=== PATIENT | female | born 1990 | race African-American/Black ===

== ENCOUNTER 2016-10-04 10:17 | Emergency (ER) | payer MEDICAID ==
[2016-10-04] MEDS ORDERED: ACETAMINOPHEN 325 MG TABLET PO ONE (10:27)
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
[2016-10-04 10:50] LABS: ABSOLUTE BASOPHILS # (AUTO) 0.1 10^3/uL (0.0-0.2); ABSOLUTE EOSINOPHILS # (AUTO) 0.1 10^3/uL (0.0-0.6); ABSOLUTE LYMPHOCYTES (AUTO) 1.9 10^3/uL (0.5-4.7); ABSOLUTE MONOCYTES (AUTO) 0.7 10^3/uL (0.1-1.4); ABSOLUTE NEUT (AUTO) 6.4 10^3/uL (1.7-8.2); BASOPHILS % (AUTO) 0.6 % (0-2); EOSINOPHILS % (AUTO) 1.3 % (0-6); HEMATOCRIT 33.5 % (36.0-47.0); HEMOGLOBIN 11.5 g/dL (12.0-15.5); LYMPHOCYTES % (AUTO) 20.6 % (13-45); MEAN CORPUSCULAR HEMOGLOBIN 30.2 pg (27.0-33.4); MEAN CORPUSCULAR HGB CONC 34.3 g/dL (32.0-36.0); MEAN CORPUSCULAR VOLUME 88 fl (80-97); MONOCYTES % (AUTO) 7.9 % (3-13); RED CELL DISTRIBUTION WIDTH 13.1 % (11.5-14.0); SEGMENTED NEUTROPHILS % (AUTO) 69.6 % (42-78); WHITE BLOOD COUNT 9.1 10^3/uL (4.0-10.5)
[2016-10-04 10:53] LABS: APPEARANCE,URINE SLIGHTLY-CLOUDY; BILIRUBIN,URINE NEGATIVE (NEGATIVE); GLUCOSE, URINE NEGATIVE (NEGATIVE); KETONES,URINE NEGATIVE (NEGATIVE); LEUKOCYTE ESTERASE,URINE TRACE (NEGATIVE); NITRITE,URINE NEGATIVE (NEGATIVE); PROTEIN,URINE NEGATIVE (NEGATIVE); URINE SPECIFIC GRAVITY 1.021; UROBILINOGEN,URINE NEGATIVE mg/dL (<2.0)
[2016-10-04 11:04] LABS: ALANINE AMINOTRANSFERASE 43 U/L (9-52); ALBUMIN 3.1 g/dL (3.5-5.0); ALKALINE PHOSPHATASE 96 U/L (38-126); ANION GAP 8 (5-19); ASPARTATE AMINO TRANSFERASE 30 U/L (14-36); BILIRUBIN,TOTAL 0.2 mg/dL (0.2-1.3); BLOOD UREA NITROGEN 7 mg/dL (7-20); CALCIUM 9.7 mg/dL (8.4-10.2); CARBON DIOXIDE 20 mmol/L (22-30); CHLORIDE 108 mmol/L (98-107); CREATININE RESULT 0.54 mg/dL (0.52-1.25); GLUCOSE 85 mg/dL (75-110); POTASSIUM 4.2 mmol/L (3.6-5.0); SODIUM 136.1 mmol/L (137-145); TOTAL PROTEIN 6.3 g/dL (6.3-8.2)
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
[2016-10-04 13:37] LABS: CHLAM PCR NOT DETECTED (NOT DETECT)
[2016-10-04 13:53] VITALS: BP 117/60
== END 2016-10-04 13:50 | disposition home or self-care (01) ==
LOC: ER 10:17
DX: O98.812 Other maternal infectious and parasitic diseases complicating pregnancy, second trimester (principal); N76.0 Acute vaginitis; B96.89 Other specified bacterial agents as the cause of diseases classified elsewhere; B37.3 Candidiasis of vulva and vagina; Z3A.18 18 weeks gestation of pregnancy; O99.332 Smoking (tobacco) complicating pregnancy, second trimester
CPT/HCPCS: 99284; 36415; 87210; 84702; 85025; 80053; 81001; 87491; 87591; 76805; 93976; L0120; J3490

== ENCOUNTER 2016-11-14 22:28 | Emergency (ER) | payer MEDICAID ==
[2016-11-14 22:41] VITALS: BP 101/62
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
== END 2016-11-15 00:38 | disposition home or self-care (01) ==
LOC: ER 22:28
DX: O9A.219 Injury, poisoning and certain other consequences of external causes complicating pregnancy, unspecified trimester (principal); S00.83XA Contusion of other part of head, initial encounter; Y04.2XXA Assault by strike against or bumped into by another person, initial encounter; Z3A.00 Weeks of gestation of pregnancy not specified
CPT/HCPCS: 99284

== ENCOUNTER 2016-12-06 11:17 | Emergency (ER) | payer MEDICAID ==
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
[2016-12-06 12:23] VITALS: BP 111/58
== END 2016-12-06 12:23 | disposition home or self-care (01) ==
LOC: ER 11:17
DX: H60.502 Unspecified acute noninfective otitis externa, left ear (principal); H92.12 Otorrhea, left ear
CPT/HCPCS: 99282

== ENCOUNTER 2017-02-21 10:50 | Inpatient (IN) | payer MEDICAID ==
[2017-02-21] MEDS ORDERED: RINGERS SOLUTION,LACTATED 1,000 ML IV PRN (11:19)
[2017-02-21] MEDS ORDERED: EPHEDRINE SULFATE INJ 50 MG/1 ML AMPULE ONE (11:21)
[2017-02-21] MEDS ORDERED: FENTANYL/BUPIVACAINE/NS/PF 200 MCG/100 ML RTUINJ EPI ONE (11:21)
[2017-02-21] MEDS ORDERED: BUPIVACAINE HCL 0.25 % INJ/PF (2.5 MG/1 ML) 30 ML VIAL INFIL ONE (11:22)
[2017-02-21] MEDS ORDERED: BUPIVACAINE HCL 0.25 % INJ/PF (2.5 MG/1 ML) 30 ML VIAL ONE (11:22)
[2017-02-21] MEDS ORDERED: FENTANYL/BUPIVACAINE/NS/PF 100 ML EPI PRN (11:22)
[2017-02-21] MEDS ORDERED: BENZOIN/ALOE VERA/STORAX/TOLU TINCTURE 60 ML TP PRN (11:22)
[2017-02-21] MEDS ORDERED: PENICILLIN G-K 5 MILLION UNIT VIAL ONE (11:22)
[2017-02-21 11:25] LABS: APPEARANCE,URINE CLEAR; BILIRUBIN,URINE NEGATIVE (NEGATIVE); GLUCOSE, URINE NEGATIVE (NEGATIVE); KETONES,URINE NEGATIVE (NEGATIVE); LEUKOCYTE ESTERASE,URINE TRACE (NEGATIVE); NITRITE,URINE NEGATIVE (NEGATIVE); PROTEIN,URINE NEGATIVE (NEGATIVE); URINE SPECIFIC GRAVITY 1.006; UROBILINOGEN,URINE NEGATIVE mg/dL (<2.0)
[2017-02-21 11:41] LABS: URINE BARBITURATES SCREEN NEGATIVE; URINE METHADONE SCREEN NEGATIVE; URINE OPIATES LOW NEGATIVE; URINE PHENCYCLIDINE SCREEN NEGATIVE
[2017-02-21 12:16] LABS: ABSOLUTE LYMPHOCYTES (AUTO) 1.4 10^3/uL (0.5-4.7); ABSOLUTE MONOCYTES (AUTO) 0.6 10^3/uL (0.1-1.4); ABSOLUTE NEUT (AUTO) 5.8 10^3/uL (1.7-8.2); BASOPHILS % (AUTO) 0.3 % (0-2); EOSINOPHILS % (AUTO) 0.4 % (0-6); HEMATOCRIT 35.6 % (36.0-47.0); HEMOGLOBIN 11.4 g/dL (12.0-15.5); HGB HCT DIFFERENCE -1.4; LYMPHOCYTES % (AUTO) 17.6 % (13-45); MEAN CORPUSCULAR HEMOGLOBIN 28.2 pg (27.0-33.4); MEAN CORPUSCULAR HGB CONC 32.1 g/dL (32.0-36.0); MEAN CORPUSCULAR VOLUME 88 fl (80-97); RED BLOOD COUNT 4.05 10^6/uL (3.72-5.28); RED CELL DISTRIBUTION WIDTH 13.3 % (11.5-14.0); SEGMENTED NEUTROPHILS % (AUTO) 73.7 % (42-78); WHITE BLOOD COUNT 7.9 10^3/uL (4.0-10.5)
[2017-02-21] MEDS ORDERED: OXYTOCIN/NORMAL SALINE 20 UNIT/1,000 ML RTUINJ ONE (12:31)
[2017-02-21] MEDS ORDERED: LIDOCAINE 1% INJ-PF (10 MG/ML) 30 ML SDV ONE (12:31)
[2017-02-21] MEDS ORDERED: MISOPROSTOL 0.2 MG TABLET ONE (12:31)
[2017-02-21] MEDS ORDERED: PSEUDOEPHEDRINE HCL 30 MG TABLET PO PRN (13:43)
[2017-02-21] MEDS ORDERED: MEASLES,MUMPS&RUBELLA VACC/PF 0.5 ML VIAL SUBCUT PRN (13:43)
[2017-02-21] MEDS ORDERED: DIPH/PERTUSS(ACELL)/TETANUS VAC/PF 0.5 ML SYR (>=10YO) IM PRN (13:43)
[2017-02-21] MEDS ORDERED: OXYTOCIN/NORMAL SALINE 1,000 ML IV PRN (13:43)
[2017-02-21] MEDS ORDERED: GLYCERIN/WITCH HAZEL LEAF 1 EACH MED..PAD TP PRN (13:43)
[2017-02-21] MEDS ORDERED: NA PHOS,M-B/NA PHOS,DI-BA (ADULT) 133 ML ENEMA PR PRN (13:43)
[2017-02-21] MEDS ORDERED: PROMETHAZINE HCL 25 MG SUPP.RECT PR PRN (13:43)
[2017-02-21] MEDS ORDERED: DIBUCAINE 1% OINTMENT 28 GM TP PRN (13:43)
[2017-02-21] MEDS ORDERED: DIPHENHYDRAMINE HCL 25 MG CAPSULE PO PRN (13:43)
[2017-02-21] MEDS ORDERED: PROMETHAZINE HCL 25 MG TABLET PO PRN (13:43)
[2017-02-21] MEDS ORDERED: PROMETHAZINE HCL INJ 25 MG/1 ML VIAL IV PRN (13:43)
[2017-02-21] MEDS ORDERED: BENZOCAINE/MENTHOL AEROSOL SPRAY 56 ML TOP PRN (13:43)
[2017-02-21] MEDS ORDERED: ZOLPIDEM TARTRATE 5 MG TABLET PO PRN (13:43)
[2017-02-21] MEDS ORDERED: MAGNESIUM HYDROXIDE SUSP 30 ML UDCUP PO PRN (13:43)
[2017-02-21] MEDS ORDERED: ACETAMINOPHEN 650 MG SUPP.RECT PR PRN (13:43)
[2017-02-21] MEDS ORDERED: ACETAMINOPHEN WITH CODEINE #3 TABLET PO PRN (13:43)
--- NOTE | 2017-02-21 14:20 | Delivery Summary ---
Del Sum A-C Datetime Report Generated by CPN: 02/21/2017 14:19 DELIVERY PERSONNEL DELIVERY PERSONNEL: [phone] Delivery Doctor:: Pita Flores MD Labor and Delivery Nurse:: Siena Centeno RNinstrument tester Nurse:: Misty Burton RN Nursery Nurse:: Ashlee Sharma RN Nursery Nurse:: Sweta Zepeda RN MATERNAL INFORMATION Delivery Anesthesia: Epidural Medications After Delivery: Pitocin Drip 20 Units/1000ml NSS Estimated Blood Loss (ml): 250 Maternal Complications: None Provider Comments: VMI delivered in YANY presentation, no nuchal cord. Shoulders and body delivered w/o difficulty. Cord doubly clamped and cut and infant to maternal abdomen. Placenta delivered intact spontaneously. Uterine exploration performed and removed small amount of membranes and no e/o retained placenta or membranes after additional exploration. FF at U. Good hemostasis post repair of laceration. Apgars 8/9. Weight pending. Mother and baby stable upon provider leaving the room. LABOR SUMMARY EDC: 03/04/2017 00:00 No. Babies in Womb: 1 Attempted: No Labor Anesthesia: Epidural LABOR INFORMATION Reason for Induction: Not Applicable Onset of Labor: 02/21/2017 04:30 Complete Dilatation: 02/21/2017 13:06 Oxytocin: N/A Group B Beta Strep: positiive Antibiotics # of Doses: 1 Antibiotics Time of Last Dose: 1136 Name of Antibiotic Given: PCN Steroids Given: None Reason Steroids Not Administered: Not Applicable MEMBRANES Membranes Rupture Method: Spontaneous Rupture of Membranes: 02/21/2017 12:19 Length of Rupture (hr): 0.93 Amniotic Fluid Color: Clear Amniotic Fluid Amount: Moderate Amniotic Fluid Odor: Normal STAGES OF LABOR Stage 1 hr: 8 Stage 1 min: 36 Stage 2 hr: 0 Stage 2 min: 9 Stage 3 hr: 0 Stage 3 min: 2 Total Time in Labor hr: 8 Total Time in Labor min: 47 VAGINAL DELIVERY Episiotomy: None Laceration Extension: First Degree Laceration Type: Vaginal Laceration Repair: Yes Laceration Repair Note: Bilateral labial and 1st degree midline laceration repaired in usual fashion with good hemostasis. Sponge Count Correct: Yes Sharps Count Correct: Yes CSECTION DELIVERY Primary Indication: N/A Secondary Indication: N/A CSection Incidence: N/A Labor: N/A Elective: N/A CSection Incision: N/A BABY A INFORMATION Infant Delivery Date/Time: 02/21/2017 13:15 Method of Delivery: Vaginal Born in Route : No : N/A Forceps: N/A Vacuum Extraction: N/A Shoulder Dystocia : No PRESENTATION/POSITION BABY A Presentation: Cephalic Cephalic Presentation: Vertex Vertex Position: Right Occipital Anterior Breech Presentation: N/A PLACENTA INFORMATION BABY A Placenta Delivery Time : 02/21/2017 13:17 Placenta Method of Delivery: Spontaneous Placenta Status: Delivered SCORES BABY A Heart Rate 1 min: >100 bpm Resp Effort 1 min: Good Cry Reflex Irritability 1 min: Cough or Sneeze or Pulls Away Muscle Tone 1 min: Some Flexion of Extremities Color 1 min: Body [place], Extremities Blue Resuscitation Effort 1 min: Tactile Stimulation SCORE 1 MIN: 8 Heart Rate 5 min: >100 bpm Resp Effort 5 min: Good Cry Reflex Irritability 5 min: Cough or Sneeze or Pulls Away Muscle Tone 5 min: Active Motion Color 5 min: Body [place], Extremities Blue Resuscitation Effort 5 min: Tactile Stimulation SCORE 5 MIN: 9 INFANT INFORMATION BABY A Gestational Age at Delivery: 38.3 Gestational Status: Early Term- 37- 38.6 Weeks Outcome : Liveborn Infant Condition : Stable Sex: Male IDENTIFICATION BABY A Verification Date/Time: 02/21/2017 13:31 ID Band Number: [id number] Mother's Name Verified: Yes RN Verifying : B Baidy RN Additional Verifying Personnel: E [employer] RN WEIGHT/LENGTH BABY A Infant Birthweight (gm): 3100 Infant Weight (lb): 6 Infant Weight (oz): 13 Length (in): 19.75 Length (cm): 50.17 CORD INFORMATION BABY A No. Cord Vessels: 3 Nuchal Cord : N/A Infant Suction: Mouth ASSESSMENT BABY A Infant Complications: None Physical Findings at Delivery: Within Normal Limits Respirations: Appears Normal Skin to Skin: Yes Estate Tax Examiner/ALS Called : No Infant Care By: A. Sharma RN Transferred To: Remains with Mother BABY B INFORMATION : N/A SIGNATURES Signature: with User ID: [email or web address]
[2017-02-21] MEDS: IBUPROFEN 800 MG TABLET PO SCH ×2 (15:13→22:07)
[2017-02-21] MEDS ORDERED: PENICILLIN G POTASSIUM 2,500,000 UNIT in DEXTROSE 5%-WATER 50 ML IV SCH (15:20)
--- NOTE | 2017-02-21 15:32 | Admission Physical ---
Datetime Report Generated by CPN: 02/21/2017 15:32 CURRENT ADMISSION Chief Complaint: Uterine Contractions Indication for Induction: Not Applicable Admit Plan: Admit to Unit; Initiate Labor Protocol ALLERGIES Medication Allergies: Yes Medication Allergies: ondansetron HCl/UT (03/22/2016) Latex: No Latex Allergies Food Allergies: N/A Environmental Allergies: N/A OBSTETRICAL HISTORY EDC: 03/04/2017 00:00 : 1 Para: 0 Term: 0 : 0 SAB: 0 IAB: 0 Ectopic: 0 Livin Cesareans: 0 VBACs: 0 Multiple Births: 0 Gestational Diabetes: No Rh Sensitization: No Incompetent Cervix: No GABBY: No Infertility: No ART Treatment: No Uterine Anomaly: No IUGR: No Hx Previous C/S: No Macrosomia: No Hx Loss/Stillborn: No PIH: No Hx : No Placenta Previa/Abruption: No Depression/PP Depression: Yes PTL/PROM: No Post Hemorrhage: No Current Procedures: Ultrasound Obstetrical History Comments: G1- current SEE RECORDS Alcohol: No Marijuana : No Cocaine: No Other Illicit Drugs: No Cigarettes: Current Everyday Smoker. [id number] MEDICAL HISTORY Diabetes: No Blood Transfusion: No Pulmonary Disease (Asthma, TB): No Breast Disease: No Hypertension: No Inspector Water Pollution Control Surgery: No Heart Disease: No Hosp/Surgery: No Autoimmune Disorder: No Anesthetic Complications: No Kidney Disease: No Abnormal Pap Smear: No Neuro/Epilepsy: No Psychiatric Disorders: No Other Medical Diseases: No Hepatitis/Liver Disease: No Significant Family History: No Varicosities/Phlebitis: No Trauma/Violence : No Thyroid Dysfunction: No INFECTIOUS HISTORY Gonorrhea: No Genital Herpes: No Chlamydia: Yes Tuberculosis: No Syphilis: No Hepatitis: No HIV/AIDS Exposure: No Rash or Viral Illness: No HPV: No Infectious History Comments: PID 2009 Chlamydia 2015 PHYSICAL EXAM General: Normal HEENT: Normal Neurologic: Normal Thyroid: Normal Heart: Normal Lungs: Normal Breast: Deferred Back: Normal Abdomen: Normal Genitourinary Exam: Normal Extremities: Normal DTRs: Normal Pelvic Type: Adequate Physical Exam Comments: Pelvis unproven Vital Signs: Reviewed; Within Normal Limits VAGINAL EXAM Dilatation: 4 Effacement: 90 Station: 0 Contraction Comments: q2 MEMBRANES Membranes: Intact FETUS A EGA: 38.3 Monitoring: External US FHR- Baseline: 120 Variability: Moderate 6-25bpm Accelerations: 15X15 Decelerations: None Presentation: Vertex Admit Comment: 26yo at 38+3ega presents via ambulance for ctx since 429. She was 2cm in the office and upon arrival is 4/0. GBS positive. Vertex presentation. c/b chlamydia - treated with TOMMY good in [place]. Repeat GC/CT 02/03/2017 was negative. History of depression. Obesity. Admit for labor. PCN for GBS pos. Pt desires epidural. Epidural upon pt request. Anticpate EFW 7# PLANS FOR LABOR AND DELIVERY Labor and Delivery: None Pain Management: Epidural Feeding Preference: Breast Benefit of Breast Feed Discussed: Yes Circumcision: Yes INFORMED CONSENT Signature: with User ID: [email or web address]
[2017-02-21] MEDS: DOCUSATE SODIUM 100 MG CAPSULE PO SCH (18:01)
[2017-02-21] MEDS: FERROUS SULFATE 325 MG TABLET PO SCH (18:01)
[2017-02-21] MEDS: ACETAMINOPHEN WITH CODEINE #3 TABLET PO PRN (20:33)
[2017-02-21] MEDS: FAMOTIDINE 20 MG TABLET PO SCH (22:07)
[2017-02-22] MEDS: IBUPROFEN 800 MG TABLET PO SCH ×3 (05:36→21:10)
[2017-02-22 08:22] LABS: HEMATOCRIT 32.3 % (36.0-47.0); HEMOGLOBIN 10.7 g/dL (12.0-15.5); HGB HCT DIFFERENCE -0.2; MEAN CORPUSCULAR HEMOGLOBIN 28.7 pg (27.0-33.4); MEAN CORPUSCULAR HGB CONC 33.1 g/dL (32.0-36.0); MEAN CORPUSCULAR VOLUME 87 fl (80-97); RED BLOOD COUNT 3.73 10^6/uL (3.72-5.28); RED CELL DISTRIBUTION WIDTH 13.4 % (11.5-14.0); WHITE BLOOD COUNT 9.8 10^3/uL (4.0-10.5)
[2017-02-22] MEDS: SENNOSIDES/DOCUSATE 8.6-50 MG 1 EACH TABLET PO SCH (09:03)
[2017-02-22] MEDS: FAMOTIDINE 20 MG TABLET PO SCH ×2 (09:03→21:10)
[2017-02-22] MEDS: FERROUS SULFATE 325 MG TABLET PO SCH ×2 (09:03→17:20)
[2017-02-22] MEDS: DOCUSATE SODIUM 100 MG CAPSULE PO SCH ×2 (09:04→17:20)
[2017-02-22] MEDS: PRENATAL VITAMIN W-O CA NO5/FE FUMARATE/FA CAPSULE PO SCH (09:04)
--- NOTE | 2017-02-22 10:11 | PDOC PROGRESS REPORT ---
Subjective-OB Subjective: Post Delivery Day: 26 year old. Denies any needs at this time Physical Exam (OB) Vital Signs: Temp Pulse Resp BP Pulse Ox 97.9 F 83 16 116/62 97 02/22/17 08:04 02/22/17 08:04 02/22/17 08:04 02/22/17 08:04 02/22/17 08:04 Intake & Output 02/21/17 02/22/17 02/23/17 06:59 06:59 06:59 Weight 91.9 kg - PIH/Pre-Eclampsia DTR's: 2 + Clonus: Negative Headache: Absent Epigastric Pain: No Visual Changes: No - Lochia Lochia Amount: Scant < 10 ml Lochia Color: Rubra/Red - Abdomen Description: Tender, Soft Hernia Present: No Bowel Sounds: Normoactive Flatus Presence: Present Stool: No Fundal Description: Firm, Midline Fundal Height: u/u - u/2 Objective-Diagnostic Laboratory: 02/22/17 08:02 02/21/17 02/21/17 02/21/17 11:01 11:45 11:45 WBC 7.9 RBC 4.05 Hgb 11.4 L Hct 35.6 L MCV 88 MCH 28.2 MCHC 32.1 RDW 13.3 Plt Count 174 Seg Neutrophils % 73.7 Lymphocytes % 17.6 Monocytes % 8.0 Eosinophils % 0.4 Basophils % 0.3 Absolute Neutrophils 5.8 Absolute Lymphocytes 1.4 Absolute Monocytes 0.6 Absolute Eosinophils 0.0 Absolute Basophils 0.0 Urine Color STRAW Urine Appearance CLEAR Urine pH 7.0 Ur Specific Lawler 1.006 Urine Protein NEGATIVE Urine Glucose (UA) NEGATIVE Urine Ketones NEGATIVE Urine Blood NEGATIVE Urine Nitrite NEGATIVE Ur Leukocyte Esterase TRACE H Blood Type B POSITIVE Antibody Screen NEGATIVE 02/22/17 08:02 WBC 9.8 RBC 3.73 Hgb 10.7 L Hct 32.3 L MCV 87 MCH 28.7 MCHC 33.1 RDW 13.4 Plt Count 168 Seg Neutrophils % Lymphocytes % Monocytes % Eosinophils % Basophils % Absolute Neutrophils Absolute Lymphocytes Absolute Monocytes Absolute Eosinophils Absolute Basophils Urine Color Urine Appearance Urine pH Ur Specific Lawler Urine Protein Urine Glucose (UA) Urine Ketones Urine Blood Urine Nitrite Ur Leukocyte Esterase Blood Type Antibody Screen
[2017-02-23] MEDS: ACETAMINOPHEN WITH CODEINE #3 TABLET PO PRN (02:07)
[2017-02-23] MEDS: IBUPROFEN 800 MG TABLET PO SCH (06:03)
[2017-02-23 08:22] VITALS: BP 121/68
[2017-02-23] MEDS: PRENATAL VITAMIN W-O CA NO5/FE FUMARATE/FA CAPSULE PO SCH (09:47)
[2017-02-23] MEDS: DOCUSATE SODIUM 100 MG CAPSULE PO SCH (09:48)
[2017-02-23] MEDS: FERROUS SULFATE 325 MG TABLET PO SCH (09:48)
[2017-02-23] MEDS: FAMOTIDINE 20 MG TABLET PO SCH (09:48)
[2017-02-23] MEDS: SENNOSIDES/DOCUSATE 8.6-50 MG 1 EACH TABLET PO SCH (09:48)
--- NOTE | 2017-02-23 13:47 | PDOC DISCHARGE SUMMARY ---
Final Diagnosis Discharge Date: 02/23/17 - Final Diagnosis (1) Chlamydia and BV in Is this a current diagnosis for this admission?: Yes (2) Positive GBS test Is this a current diagnosis for this admission?: Yes (3) Obesity affecting Is this a current diagnosis for this admission?: Yes (4) Smoker Is this a current diagnosis for this admission?: Yes (5) Delivery normal Is this a current diagnosis for this admission?: Yes (6) Is this a current diagnosis for this admission?: Yes Discharge Data - Discharge Medication Home Medications: Docusate Sodium [Colace 100 mg Capsule] 100 mg PO BID #60 capsule 02/23/17 Ferrous Sulfate [Feosol 325 mg Tablet] 325 mg PO BID #60 tablet 02/23/17 Ibuprofen [Motrin 800 mg Tablet] 800 mg PO Q8HP PRN #60 tablet 02/23/17 Pnv W-O Ca No5/Fe Fumarate/FA [-U Multiple Vitamin Capsule] 1 cap PO DAILY #0 capsule 02/23/17 Reason(s) for Admission: Onset of Labor Intrapartum Procedure(s): Spontaneous Vaginal Delivery Complication(s): Laceration-Perineal Laceration-Degree: 1st - Diagnosis Test Laboratory: Temp Pulse Resp BP Pulse Ox 98.0 F 89 17 121/68 100 02/23/17 08:20 02/23/17 08:20 02/23/17 08:20 02/23/17 08:20 02/23/17 08:20 02/21/17 02/21/17 02/22/17 11:01 11:45 08:02 RBC 4.05 3.73 Hgb 11.4 L 10.7 L Hct 35.6 L 32.3 L Urine Opiates Screen NEGATIVE - Discharge information/Instructions Discharge Activity: Activity As Tolerated, Balance Activity w/Rest, No Lifting Over 10 Pounds, No Lifting/Push/Pulling, No tub bath Discharge Diet: Regular Disposition: HOME, SELF-CARE Follow up with: [facility] in: 4, Weeks
== END 2017-02-23 14:05 | disposition home or self-care (01) | DRG 775 ==
LOC: LC 10:50 → LR 11:19 → 2S 15:29
PROVIDERS: ADMIT Student in an Organized Health Care Education/Training Program; ATTEND Student in an Organized Health Care Education/Training Program
PROC: 10E0XZZ Delivery of Products of Conception, External Approach (ICD-10-PCS; principal; 2017-02-21)
PROC: 0HQ9XZZ Repair Perineum Skin, External Approach (ICD-10-PCS; 2017-02-21)
PROC: 4A1HXCZ Monitoring of Products of Conception, Cardiac Rate, External Approach (ICD-10-PCS; 2017-02-21)
DX: O99.824 Streptococcus B carrier state complicating childbirth (principal); O70.0 First degree perineal laceration during delivery; O99.214 Obesity complicating childbirth; E66.9 Obesity, unspecified; Z68.32 Body mass index [BMI] 32.0-32.9, adult; O99.334 Smoking (tobacco) complicating childbirth; F17.210 Nicotine dependence, cigarettes, uncomplicated; O99.344 Other mental disorders complicating childbirth; F32.9 Major depressive disorder, single episode, unspecified; Z79.899 Other long term (current) drug therapy; Z88.8 Allergy status to other drugs, medicaments and biological substances; Z3A.38 38 weeks gestation of pregnancy; Z37.0 Single live birth
CPT/HCPCS: 36415; 80307; 81005; 85025; 85027; 86592; 86850; 86900; 86901; 94760; J2540; J2590; J3490

== ENCOUNTER 2017-03-15 12:16 | Emergency (ER) | payer MEDICAID ==
[2017-03-15 12:22] VITALS: BP 118/73
[2017-03-15] MEDS ORDERED: DOCUSATE SODIUM 100 MG CAPSULE RT_EAR ONE (13:24)
--- NOTE | 2017-03-15 13:37 | ER Document Report ---
HPI - HPI Pain Level: 3 Context: 26 yo female c/o left wrist pain x 1 month and decreased hearing in right ear x 1 wk. no ear pain or drainage. pt reports that a piece of equipment fell on wrist 1 month ago. has been having pain in wrist since then. + pain with movement Associated Symptoms: None Exacerbated by: Movement Relieved by: Denies Similar symptoms previously: No Recently seen / treated by doctor: No - CONSTITUTIONAL Constitutional: DENIES: Fever, Chills - EENT EENT: REPORTS: Ear Pain - ear clogged - REPRODUCTIVE Reproductive: REPORTS: : - MUSCULOSKELETAL Musculoskeletal: REPORTS: Extremity pain - left wrist - DERM Skin Color: Normal - NURSING COMMENTS Comment: pt stated she dropped a piece of equipment on her left wrist a month ago and has been hurting since. pt stated she was so no xrays were taken. pt also has right ear hard to hear out of feels clogged Past Medical History - General Information source: Patient Last Menstrual Period: 03/14/2017 - Social History Smoking Status: Current Every Day Smoker Cigarette use (# per day): No Chew tobacco use (# tins/day): No Frequency of alcohol use: None Drug Abuse: None Lives with: Family Family History: Arthritis, CAD, CVA, DM, Hyperlipidemia, Hypertension, Malignancy. denies: Thyroid Disfunction - Past Medical History Cardiac Medical History: Reports: Hx Hypercholesterolemia Neurological Medical History: Reports: Hx Migraine Renal/ Medical History: Denies: Hx Peritoneal Dialysis GI Medical History: Reports: Hx Gastroesophageal Reflux Disease Musculoskeltal Medical History: Reports Hx Musculoskeletal Trauma - left ankle fracture Skin Medical History: Reports Hx Eczema Psychiatric Medical History: Reports: Hx Bipolar Disorder Traumatic Medical History: Reports: Hx Fractures - left ankle Surgical Hx: Negative - Immunizations Hx Diphtheria, Pertussis, Tetanus Vaccination: Yes - 2013 Vertical Provider Document - CONSTITUTIONAL Agree With Documented VS: Yes Exam Limitations: No Limitations - INFECTION CONTROL TRAVEL OUTSIDE OF THE [place] IN LAST 30 DAYS: No - HEENT HEENT: Atraumatic. negative: Tympanic Membrane Bulging - + cerumen impaction right EAC - NECK Neck: Normal Inspection, Supple - RESPIRATORY Respiratory: Breath Sounds Normal, No Respiratory Distress O2 Sat by Pulse Oximetry: 97 - CARDIOVASCULAR Cardiovascular: Regular Rate, Regular Rhythm - MUSCULOSKELETAL/EXTREMETIES Musculoskeletal/Extremeties: Tender - left distal radial tenderness. + snuff box tenderness. no pain with axial thumb loading - NEURO Level of Consciousness: Awake, Alert, Appropriate Motor/Sensory: No Sensory Deficit - DERM Integumentary: Warm, Dry, No Rash Course - Re-evaluation Re-evalutation: 03/15/17 14:36 xray negative for fracture. H&P c/w tendonitits. results reviewed with patient. with provide cock up wrist splint for comfort and have patient follow up with primary care. pt stable for discharge - Vital Signs Vital signs: Temp Pulse Resp BP Pulse Ox 97.9 F 99 16 118/73 97 03/15/17 12:20 03/15/17 12:20 03/15/17 12:20 03/15/17 12:20 03/15/17 12:20 Procedures - Immobilization left wrist Immobilizer type: Cock-up Performed by: PCT Post-Proc Neuro Vasc Exam: Normal Alignment checked and good: Yes Discharge - Discharge Clinical Impression: Left wrist pain Cerumen impaction Qualifiers: Laterality: right Qualified Code(s): H61.21 - Impacted cerumen, right ear Condition: Stable Disposition: HOME, SELF-CARE Instructions: Temporary Splint ([facility]), Ice & Elevation ([facility]), Ibuprofen (General ) ([facility]) Additional Instructions: Your xray is negative for fracture wear splint for comfort take motrin for pain and inflammation follow up with primary care if pain persists, may need orthopedic referral You may use OTC ear irrigation as needed for wax build up in ears Prescriptions: Ibuprofen [Motrin 800 Mg Tablet] 800 mg PO Q6H #20 tablet
--- NOTE | 2017-03-15 14:13 | RADIOLOGY REPORT (SQ) ---
EXAM DESCRIPTION: WRIST LEFT 3 VIEWS COMPLETED DATE/TIME: 03/15/2017 2:06 pm REASON FOR STUDY: peice of equipment fell on wrist COMPARISON: None. NUMBER OF VIEWS: Three views. TECHNIQUE: AP, lateral, and oblique radiographic images acquired of the left wrist. LIMITATIONS: None. FINDINGS: MINERALIZATION: Normal. BONES: No acute fracture or dislocation. No worrisome bone lesions. Normal alignment. SOFT TISSUES: No soft tissue swelling. No foreign body. OTHER: No other significant finding. IMPRESSION: NEGATIVE STUDY OF THE LEFT WRIST. NO RADIOGRAPHIC EVIDENCE OF ACUTE INJURY. TECHNICAL DOCUMENTATION: JOB ID: [id number] [employer]- All Rights Reserved
== END 2017-03-15 15:45 | disposition home or self-care (01) ==
LOC: ER 12:16
DX: M25.532 Pain in left wrist (principal); W20.8XXA Other cause of strike by thrown, projected or falling object, initial encounter; H61.21 Impacted cerumen, right ear; F17.200 Nicotine dependence, unspecified, uncomplicated
CPT/HCPCS: 99283; 73110; L3908; J3490

== ENCOUNTER 2017-04-19 10:02 | Emergency (ER) | payer MEDICAID ==
--- NOTE | 2017-04-19 10:41 | ER Document Report ---
ED ENT - General Chief Complaint: Cough Stated Complaint: COUGH Time Seen by Provider: 04/19/17 10:06 Mode of Arrival: Ambulatory Information source: Patient Notes: 26-year-old female presents to ED for complaint of cough for 4 days. She states she initially had a sore throat which is progressed in severity to now at the level 4. She also states she has had clogging and pain in both ears. She denies any medication or treatment prior to arrival. She claims she has had discharge and drainage from her ears. TRAVEL OUTSIDE OF THE [place] IN LAST 30 DAYS: No - HPI Patient complains to provider of: Ear problem, Nose problem, Throat problem Onset: Other - 4 days Onset/Duration: Gradual, Worse Quality of pain: Achy, Sharp Severity: Moderate Pain Level: 4 Context: Recent Illness Location of pain: Ears, Nose, Sinus, Throat Associated symptoms: Chills, Cough, Ear pain, Ear drainage, Fever, Sinus pain, Sinus drainage, Sore throat Similar symptoms previously: Yes Recently seen / treated by doctor: No - Related Data Allergies/Adverse Reactions: ondansetron HCl [From Zofran] Allergy (Mild, Verified 04/19/17 11:04) Past Medical History - General Information source: Patient - Social History Smoking Status: Current Every Day Smoker Cigarette use (# per day): Yes - 3-4 cig Chew tobacco use (# tins/day): No Smoking Education Provided: Yes - less than 2 min Frequency of alcohol use: None Drug Abuse: None Lives with: Family Family History: Arthritis, CAD, CVA, DM, Hyperlipidemia, Hypertension, Malignancy, Thyroid Disfunction Patient has suicidal ideation: No Patient has homicidal ideation: No - Past Medical History Cardiac Medical History: Reports: Hx Hypercholesterolemia Pulmonary Medical History: Reports: None EENT Medical History: Reports: None Neurological Medical History: Reports: Hx Migraine Endocrine Medical History: Reports: None Renal/ Medical History: Reports: None Malignancy Medical History: Reports: None GI Medical History: Reports: Hx Gastroesophageal Reflux Disease Musculoskeltal Medical History: Reports Hx Musculoskeletal Trauma - left ankle fracture Skin Medical History: Reports Hx Eczema Psychiatric Medical History: Reports: Hx Bipolar Disorder Traumatic Medical History: Reports: Hx Fractures - left ankle Infectious Medical History: Reports: None Past Surgical History: Reports: Hx Oral Surgery - wisdom teeth - Immunizations Immunizations up to date: Yes Hx Diphtheria, Pertussis, Tetanus Vaccination: Yes - 2012 Review of Systems - Review of Systems Constitutional: No symptoms reported EENT: Ear pain, Ear discharge, Nose discharge, Sinus discharge, Throat pain Cardiovascular: No symptoms reported Respiratory: Cough Gastrointestinal: No symptoms reported Genitourinary: No symptoms reported Female Genitourinary: No symptoms reported Musculoskeletal: No symptoms reported Skin: No symptoms reported Hematologic/Lymphatic: No symptoms reported Neurological/Psychological: No symptoms reported -: Yes All other systems reviewed and negative Physical Exam - Vital signs Vitals: Temp Pulse Resp BP Pulse Ox 98.5 F 94 16 103/64 98 04/19/17 10:06 04/19/17 10:06 04/19/17 10:06 04/19/17 10:06 04/19/17 10:06 Interpretation: Normal - General General appearance: Appears well, Alert - HEENT Head: Normocephalic, Atraumatic Eyes: Normal Pupils: PERRL Ears: Normal External canal: Erythema, Swollen Tympanic membrane: Injected, Loss of landmarks Sinus: Normal Nasal: Purulent discharge, Swelling Mouth/Lips: Normal Mucous membranes: Normal Pharynx: Erythema Neck: Normal - Respiratory Respiratory status: No respiratory distress Chest status: Nontender Breath sounds: Nonproductive cough Chest palpation: Normal - Cardiovascular Rhythm: Regular Heart sounds: Normal auscultation Murmur: No - Abdominal Inspection: Normal Distension: No distension Bowel sounds: Normal Tenderness: Nontender Organomegaly: No organomegaly - Back Back: Normal, Nontender - Extremities General upper extremity: Normal inspection, Nontender, Normal color, Normal ROM , Normal temperature General lower extremity: Normal inspection, Nontender, Normal color, Normal ROM , Normal temperature, Normal weight bearing. No: Tarik's sign - Neurological Neuro grossly intact: Yes Cognition: Normal Orientation: AAOx4 [place] Coma Scale Eye Opening: Spontaneous Jovan Coma Scale Verbal: Oriented Jovan Coma Scale Motor: Obeys Commands Jovan Coma Scale Total: 15 Speech: Normal Motor strength normal: LUE, RUE, LLE, RLE Sensory: Normal - Psychological Associated symptoms: Normal affect, Normal mood - Skin Skin Temperature: Warm Skin Moisture: Dry Skin Color: Normal Course - Re-evaluation Re-evalutation: 04/19/17 19:06 Assessment consistent with upper respiratory infection with ear infections. Patient was treated with Cipro eardrops and amoxicillin. Patient to follow-up with her primary doctor on Thursday or Thursday to ensure that the ears are clearing up. - Vital Signs Vital signs: Temp Pulse Resp BP Pulse Ox 98.9 F 93 18 106/64 98 04/19/17 11:12 04/19/17 11:12 04/19/17 11:12 04/19/17 11:12 04/19/17 11:12 Discharge - Discharge Clinical Impression: Otitis media Qualifiers: Otitis media type: suppurative Chronicity: acute Laterality: left Recurrence: not specified as recurrent Spontaneous tympanic membrane rupture: without spontaneous rupture Qualified Code(s): H66.002 - Acute suppurative otitis media without spontaneous rupture of ear drum, left ear Otitis externa Qualifiers: Otitis externa type: unspecified type Chronicity: acute Laterality: bilateral Qualified Code(s): H60.503 - Unspecified acute noninfective otitis externa, bilateral URI (upper respiratory infection) Qualifiers: URI type: unspecified URI Qualified Code(s): J06.9 - Acute upper respiratory infection, unspecified Condition: Stable Disposition: HOME, SELF-CARE Instructions: Family Physicians / Practices Additional Instructions: UPPER RESPIRATORY ILLNESS: You have a viral infection of the respiratory passages -- a "cold." This common infection causes nasal congestion, drainage, and often sore throat and cough. It is highly contagious. The disease usually lasts about 10 to 14 days. There is no "cure" for the viral infection -- it must run its course. If there is a complication, such as bacterial infection in the nose, sinuses, middle ear, or bronchial tubes, antibiotics may be required. The antibiotics won't affect the virus. Drink plenty of fluids. A humidifier may help. An expectorant medication or decongestant may make you more comfortable. Use acetaminophen or ibuprofen for fever or aches. See the doctor if fever persists over two days, if there is any significant worsening of your symptoms, or if you simply fail to improve as expected. OTITIS MEDIA: You have a middle ear infection (otitis media). This is usually a complication of a cold or sore throat. The middle ear cavity becomes filled with infection. Pressure and stretching of the ear drum cause pain. Antibiotics are required. A 10 day course is usually prescribed. A decongestant may be recommended if you have a "runny nose." You may need anesthetic drops or other pain medication. A follow-up exam may be recommended to make sure the infection has completely cleared. If the ear begins to drain, it means the ear drum has ruptured. This will usually heal spontaneously. However, it means you should keep the ear dry until re-examined by a doctor. Call the physician or return for examination at once if there is severe headache, stiff neck, confusion, increasing fever, or dizziness. You should improve significantly within two days. If you're not better, call the doctor. OTITIS EXTERNA: You have otitis externa -- an infection of the outer ear canal. This can be very painful. It's sometimes called "swimmer's ear," because it often occurs after prolonged water exposure. Many things, such as earwax and dirt in the ear, can contribute to it. The usual treatment is antibiotic/antiinflammatory ear drops. Occasionally , a wick will be placed in the ear to draw in the medicine. If the infection is severe, an oral antibiotic may be prescribed. Pain medication is often needed. Avoid getting water in the ear. Outer ear infections often take longer to heal than you might expect. Some tenderness and ache in the ear may persist for about two weeks. See your physician if you fail to improve as expected. Call the doctor at once if you develop fever, increasing swelling (particularly if it makes your ear "poke out"), severe headache, stiff neck, or decreased hearing. USE OF EAR DROPS: Your ear drops won't do much good if they don't get all the way in. To help the ear drops penetrate all the way to the ear drum, use the following technique. If you encounter problems of any kind, notify the physician. (1) Lay your head sideways on a pillow. (2) Place the dropper tip just barely inside the ear canal, almost touching the bottom side of the canal. The liquid is tolerated better on the bottom of the canal. (3) Squeeze out the appropriate amount of medicine, and remove the dropper. (4) Grab the back of the ear (just behind the ear canal) between your index finger and thumb. (5) Tug up, then let the ear drop back. Repeat several times. This pumps the medicine down. (6) Wait five minutes, then place a cotton ball in the ear canal to catch and hold the medicine. CIPROFLOXACIN: You have been given an antibacterial agent, ciprofloxacin (Cipro). This medicine is not related to the penicillins, sulfas, cephalosporins, or tetracyclines. It is often given to patients who are allergic to these drugs. It has been chosen for you either because other drugs are not appropriate, or because of the nature of your problem. Cipro should not be taken with antacids, as these can decrease its effectiveness. It can be taken without regard to meals. CIPRO SHOULD NOT BE TAKEN BY CHILDREN, NURSING WOMEN, OR WOMEN. Although Cipro is usually well-tolerated, common side effects can include nausea and diarrhea. Contact your doctor if you experience any unusual symptoms while on this medication, such as joint pain or swelling, shortness of breath, wheezing, faintness, or hives. AMOXICILLIN: Amoxicillin is a member of the penicillin family. It covers the germs likely to cause ear, bronchial, and urinary infections better than plain penicillin. Amoxicillin can be taken without regard to meals. Nausea after taking the medication is rare, but can occur. Diarrhea can occur, particularly in small children. Vaginal yeast infections and oral thrush in infants are also common. Contact your physician if these problems occur. Allergy to penicillins is common. If you have had an allergic reaction to any drug of the penicillin family, you should never take any other penicillin. Notify your doctor at once if you develop hives, itching, swelling, faintness, or shortness of breath. Less serious side effects can include nausea or diarrhea. DECONGESTANT MEDICATION: A decongestant medicine has been suggested. Often this medicine is combined in the same tablet with an antihistamine or expectorant. This type of medicine is helpful in treating a bad cold or sinus condition, as well as in treatment of the nasal congestion of hay fever. It is not of much benefit for lung infections. Decongestant medicines are related to stimulants. They can cause an increase in blood pressure and heart rate. Persons with heart disease and high blood pressure should not take decongestants without discussing this with the physician. If you develop palpitations, chest pain, headache, or tremors, stop the medicine and consult your physician. COUGH-SUPPRESSANT & EXPECTORANT MEDICATION: You are to use a cough medication as needed for relief of symptoms. This medicine is a combination of an expectorant (to make the mucous thinner and more easily "coughed up") and a cough suppressant (to reduce the frequency of coughing). The cough-suppressant medicine is related to narcotics. You may experience mild nausea and sleepiness. Some patients who are very sensitive to narcotics may have stomach pain from this medicine. Taking the medicine with food reduces these side effects. Do not drive or work with machinery until you know how this medicine affects you. The expectorant should have no side effects. Iodine-containing expectorants (such as organidin) should not be taken by persons with active thyroid disease unless approved by your doctor. Call the doctor if you develop shortness of breath, hives, rash, itching, lightheadedness, or severe nausea and vomiting. USE OF ACETAMINOPHEN (Tylenol): Acetaminophen may be taken for pain relief or fever control. It's much safer than aspirin, offering a wider range of "safe" dosages. It is safe during . Some brand names are Tylenol, Panadol, Datril, Anacin 3, Tempra, and Liquiprin. Acetaminophen can be repeated every four hours. The following are maximum recommended dosages: >89 pounds or adults 650 mg to 900 mg Acetaminophen can be repeated every four hours. Maximum dose not to exceed 4000 mg a day. FOLLOW-UP CARE: If you have been referred to a physician for follow-up care, call the physician s office for an appointment as you were instructed or within the next two days. If you experience worsening or a significant change in your symptoms, notify the physician immediately or return to the Emergency Department at any time for re-evaluation. Prescriptions: Amoxicillin 875 mg PO BID #20 tablet Forms: Return to Work
[2017-04-19 11:15] VITALS: BP 106/64
--- NOTE | 2017-04-19 11:31 | RADIOLOGY REPORT (SQ) ---
EXAM DESCRIPTION: CHEST PA/LAT COMPLETED DATE/TIME: 04/19/2017 10:54 am REASON FOR STUDY: cough COMPARISON: None. TECHNIQUE: Frontal and lateral radiographic views of the chest acquired. NUMBER OF VIEWS: Two view. LIMITATIONS: None. FINDINGS: LUNGS AND PLEURA: No opacities, masses or pneumothorax. No pleural effusion. MEDIASTINUM AND HILAR STRUCTURES: No masses or contour abnormalities. HEART AND VASCULAR STRUCTURES: Heart normal size. No evidence for failure. BONES: No acute findings. HARDWARE: None in the chest. OTHER: No other significant finding. IMPRESSION: NO SIGNIFICANT RADIOGRAPHIC FINDING IN THE CHEST. TECHNICAL DOCUMENTATION: JOB ID: [id number] [email or web address]- All Rights Reserved
[2017-04-19] MEDS ORDERED: GUAIFENESIN 600 MG TABLET.SA PO ONE (11:53)
[2017-04-19] MEDS ORDERED: IBUPROFEN 800 MG TABLET PO ONE (11:53)
[2017-04-19] MEDS ORDERED: PSEUDOEPHEDRINE HCL 30 MG TABLET PO ONE (11:53)
[2017-04-19] MEDS ORDERED: CIPROFLOXACIN-HC OTIC SUSP 10 ML AU ONE (11:54)
[2017-04-19] MEDS ORDERED: AMOXICILLIN TRIHYDRATE 500 MG CAPSULE PO ONE (11:54)
== END 2017-04-19 12:54 | disposition home or self-care (01) ==
LOC: ER 10:02
DX: J02.9 Acute pharyngitis, unspecified (principal); H66.002 Acute suppurative otitis media without spontaneous rupture of ear drum, left ear; H60.503 Unspecified acute noninfective otitis externa, bilateral; R05 Cough; H92.03 Otalgia, bilateral; J34.89 Other specified disorders of nose and nasal sinuses; R50.9 Fever, unspecified; F17.210 Nicotine dependence, cigarettes, uncomplicated; Z71.6 Tobacco abuse counseling; Z88.8 Allergy status to other drugs, medicaments and biological substances
CPT/HCPCS: 99283; 71020; J3490 ×3

== ENCOUNTER 2017-07-19 17:37 | Emergency (ER) | payer SELFPAY ==
[2017-07-19] MEDS ORDERED: ACETAMINOPHEN 325 MG TABLET PO ONE (18:09)
[2017-07-19] MEDS ORDERED: NORMAL SALINE 1000 ML 1,000 ML IV ONE (18:10)
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
[2017-07-19 19:58] LABS: ABSOLUTE BASOPHILS # (AUTO) 0.1 10^3/uL (0.0-0.2); ABSOLUTE LYMPHOCYTES (AUTO) 2.1 10^3/uL (0.5-4.7); ABSOLUTE MONOCYTES (AUTO) 0.4 10^3/uL (0.1-1.4); ABSOLUTE NEUT (AUTO) 4.1 10^3/uL (1.7-8.2); EOSINOPHILS % (AUTO) 0.4 % (0-6); HEMATOCRIT 43.9 % (36.0-47.0); HEMOGLOBIN 14.7 g/dL (12.0-15.5); HGB HCT DIFFERENCE 0.2; MEAN CORPUSCULAR HEMOGLOBIN 28.9 pg (27.0-33.4); MEAN CORPUSCULAR HGB CONC 33.5 g/dL (32.0-36.0); MEAN CORPUSCULAR VOLUME 86 fl (80-97); MONOCYTES % (AUTO) 6.6 % (3-13); RED BLOOD COUNT 5.09 10^6/uL (3.72-5.28); RED CELL DISTRIBUTION WIDTH 13.1 % (11.5-14.0); WHITE BLOOD COUNT 6.7 10^3/uL (4.0-10.5)
[2017-07-19 20:30] LABS: APPEARANCE,URINE CLEAR; BILIRUBIN,URINE NEGATIVE (NEGATIVE); GLUCOSE, URINE NEGATIVE (NEGATIVE); KETONES,URINE NEGATIVE (NEGATIVE); LEUKOCYTE ESTERASE,URINE NEGATIVE (NEGATIVE); NITRITE,URINE NEGATIVE (NEGATIVE); PROTEIN,URINE NEGATIVE (NEGATIVE); URINE SPECIFIC GRAVITY 1.018; UROBILINOGEN,URINE NEGATIVE mg/dL (<2.0)
[2017-07-19 20:32] LABS: ANION GAP 15 (5-19); BLOOD UREA NITROGEN 11 mg/dL (7-20); CALCIUM 10.1 mg/dL (8.4-10.2); CARBON DIOXIDE 23 mmol/L (22-30); CHLORIDE 107 mmol/L (98-107); GLUCOSE 91 mg/dL (75-110); POTASSIUM 4.2 mmol/L (3.6-5.0)
[2017-07-19 20:38] LABS: URINE BARBITURATES SCREEN NEGATIVE; URINE METHADONE SCREEN NEGATIVE; URINE OPIATES LOW NEGATIVE; URINE PHENCYCLIDINE SCREEN NEGATIVE
[2017-07-19 20:39] LABS: RBC,URINE 0-1 /HPF
[2017-07-19 20:40] LABS: BACTERIA,URINE TRACE /HPF
[2017-07-19] MEDS ORDERED: ERYTHROMYCIN 0.5% OPH OINTMENT 3.5 GM (ER DISP) OU PRN (20:47)
[2017-07-19 21:20] VITALS: BP 119/86
== END 2017-07-19 21:15 | disposition home or self-care (01) ==
LOC: ER 17:37
DX: S09.90XA Unspecified injury of head, initial encounter (principal); S00.81XA Abrasion of other part of head, initial encounter; F17.200 Nicotine dependence, unspecified, uncomplicated; E78.00 Pure hypercholesterolemia, unspecified; Y04.2XXA Assault by strike against or bumped into by another person, initial encounter; Z77.098 Contact with and (suspected) exposure to other hazardous, chiefly nonmedicinal, chemicals
CPT/HCPCS: 99284; 96360; 36415; 85025; 80048; 81001; 80307; 70486; J7030

== ENCOUNTER 2017-11-05 05:48 | Emergency (ER) | payer SELFPAY ==
[2017-11-05 06:00] VITALS: BP 101/65
--- NOTE | 2017-11-05 06:14 | ER Document Report ---
ED ENT - General Chief Complaint: Sore Throat Stated Complaint: HARD TO SWALLOW Time Seen by Provider: 11/05/17 06:07 Mode of Arrival: Ambulatory Information source: Patient TRAVEL OUTSIDE OF THE [place] IN LAST 30 DAYS: No - HPI Patient complains to provider of: Throat problem Notes: Patient is here with complaints of sore throat. She states her throat started hurting 2 days ago and has gotten worse. She also complains of a cough. She denies any significant nasal congestion. No fever. No nausea, vomiting, diarrhea. No difficulty breathing or swallowing. No chest pain or shortness of breath. No rash. She denies any chronic medical problems. She denies any other complaints at this time. Pain is worse with swallowinG, nothing makes it better. - Related Data Allergies/Adverse Reactions: ondansetron HCl [From Zofran] Allergy (Mild, Verified 11/05/17 05:52) Past Medical History - Social History Smoking Status: Current Every Day Smoker Chew tobacco use (# tins/day): No Frequency of alcohol use: None Drug Abuse: None Family History: Arthritis, CAD, CVA, DM, Hyperlipidemia, Hypertension, Malignancy, Thyroid Disfunction Patient has suicidal ideation: No Patient has homicidal ideation: No - Past Medical History Cardiac Medical History: Reports: Hx Hypercholesterolemia Neurological Medical History: Reports: Hx Migraine Renal/ Medical History: Denies: Hx Peritoneal Dialysis GI Medical History: Reports: Hx Gastroesophageal Reflux Disease Musculoskeltal Medical History: Reports Hx Musculoskeletal Trauma - left ankle fracture Skin Medical History: Reports Hx Eczema Psychiatric Medical History: Reports: Hx Bipolar Disorder Traumatic Medical History: Reports: Hx Fractures - left ankle Past Surgical History: Reports: Hx Oral Surgery - wisdom teeth - Immunizations Immunizations up to date: Yes Hx Diphtheria, Pertussis, Tetanus Vaccination: Yes - 2012 Review of Systems - Review of Systems -: Yes All other systems reviewed and negative Physical Exam - Vital signs Vitals: Temp Pulse Resp BP Pulse Ox 99.4 F 101 H 20 101/65 97 11/05/17 05:59 11/05/17 05:59 11/05/17 05:59 11/05/17 05:59 11/05/17 05:59 - Notes Notes: GENERAL: alert, cooperative, nontoxic, no distress. HEAD: normocephalic, atraumatic EYES: conjunctiva pink without discharge, no external redness or swelling. EARS: no external swelling, no external redness, no mastoid redness, swelling, tenderness. Ear canals are clear without swelling or drainage. TMs pearly ca , no redness, no bulging, normal landmarks, no perforation. NOSE: atraumatic, no external swelling. clear rhinorrhea noted. MOUTH/THROAT: mucous membranes moist and pink, posterior pharynx without erythema, swelling, exudate. No trismus or drooling. NECK: soft, supple, full range of motion, no meningismus. CHEST: no distress, lungs clear and equal throughout. No wheezing, rales, rhonchi. CARDIAC: regular rate and rhythm, no murmur, normal capillary refill, normal pulses. No peripheral edema noted. BACK: full range of motion, no CVA tenderness. EXTREMITIES: full range of motion of all extremities. No redness, no swelling. NEURO: alert and oriented A&O3, no focal deficits, full range of motion of all extremities. PYSCH: appropriate mood, affect. Patient is cooperative. SKIN: pink, warm, dry, no rash. Course - Re-evaluation Re-evalutation: 11/05/17 07:06 Patient is nontoxic appearing with stable vitals. The patient is here with complaints of sore throat for the last 3 days. She is a benign exam. She is in no distress. Vitals are stable. Rapid strep is negative. Patient will be discharged home with prescription for Naprosyn. Follow-up if not better in the next 3-5 days, sooner for worsening symptoms, high fever, difficulty breathing or swallowing, or for any further concerns. The patient's emergency department workup and current diagnosis were explained to the patient and or family. Follow-up instructions were provided. Medications if prescribed were discussed. Instructions for when to return to the emergency department including specific worrisome symptoms were discussed with the patient and/or family. - Vital Signs Vital signs: Temp Pulse Resp BP Pulse Ox 99.4 F 101 H 20 101/65 97 11/05/17 05:59 11/05/17 05:59 11/05/17 05:59 11/05/17 05:59 11/05/17 05:59 Discharge - Discharge Clinical Impression: Sore throat Condition: Stable Disposition: HOME, SELF-CARE Instructions: Sore Throat ([facility]) Additional Instructions: Take medications as prescribed. Drink plenty of fluids. Follow-up if not better in the next 3-5 days, sooner for worsening pain, high fever, difficulty breathing or swallowing, or for any further concerns. Prescriptions: Naproxen [Naprosyn] 500 mg PO BID #20 tablet Forms: Smoking Cessation Education Referrals: [facility] [Provider Group] - Follow up as needed
== END 2017-11-05 07:23 | disposition home or self-care (01) ==
LOC: ER 05:48
DX: J02.9 Acute pharyngitis, unspecified (principal); F17.200 Nicotine dependence, unspecified, uncomplicated; E78.00 Pure hypercholesterolemia, unspecified
CPT/HCPCS: 87070; 87880; 99283

== ENCOUNTER 2018-04-02 13:56 | Emergency (ER) | payer MEDICAID ==
[2018-04-02] MEDS ORDERED: KETOROLAC TROMETHAMINE 60 MG/2 ML SDV IM ONE (14:24)
--- NOTE | 2018-04-02 14:25 | ER Document Report ---
ED Medical Screen (RME) - General Chief Complaint: Chest Pain Stated Complaint: STOMACH PAIN Time Seen by Provider: 04/02/18 14:23 Notes: 27 years old female presents today with abdominal pain and lower chest pain for the last 2 days. Associated with nausea no vomiting. No fever chills denies any diarrhea or constipation. Denies any dysuria frequency urgency. TRAVEL OUTSIDE OF THE [place] IN LAST 30 DAYS: No - Related Data Allergies/Adverse Reactions: ondansetron HCl [From Zofran] Allergy (Mild, Verified 11/05/17 05:52) lidocaine Allergy (Verified 04/02/18 14:02) Past Medical History - Past Medical History Cardiac Medical History: Reports: Hx Hypercholesterolemia Neurological Medical History: Reports: Hx Migraine Renal/ Medical History: Denies: Hx Peritoneal Dialysis GI Medical History: Reports: Hx Gastroesophageal Reflux Disease Musculoskeltal Medical History: Reports Hx Musculoskeletal Trauma - left ankle fracture Skin Medical History: Reports Hx Eczema Psychiatric Medical History: Reports: Hx Bipolar Disorder Traumatic Medical History: Reports: Hx Fractures - left ankle Past Surgical History: Reports: Hx Oral Surgery - wisdom teeth - Immunizations Immunizations up to date: Yes Hx Diphtheria, Pertussis, Tetanus Vaccination: Yes - 2012 Physical Exam - Vital signs Vitals: Temp Pulse Resp BP Pulse Ox 98.6 F 95 18 110/66 99 04/02/18 14:10 04/02/18 14:10 04/02/18 14:10 04/02/18 14:10 04/02/18 14:10 Course - Vital Signs Vital signs: Temp Pulse Resp BP Pulse Ox 98.6 F 95 18 110/66 99 04/02/18 14:10 04/02/18 14:10 04/02/18 14:10 04/02/18 14:10 04/02/18 14:10
[2018-04-02] MEDS ORDERED: DICYCLOMINE HCL INJ 20 MG/2 ML AMPULE IM ONE (14:30)
[2018-04-02 15:14] LABS: ABSOLUTE BASOPHILS # (AUTO) 0.1 10^3/uL (0.0-0.2); ABSOLUTE EOSINOPHILS # (AUTO) 0.1 10^3/uL (0.0-0.6); ABSOLUTE LYMPHOCYTES (AUTO) 2.6 10^3/uL (0.5-4.7); ABSOLUTE MONOCYTES (AUTO) 0.4 10^3/uL (0.1-1.4); ABSOLUTE NEUT (AUTO) 2.7 10^3/uL (1.7-8.2); BASOPHILS % (AUTO) 1.4 % (0-2); EOSINOPHILS % (AUTO) 1.7 % (0-6); HEMATOCRIT 41.3 % (36.0-47.0); HEMOGLOBIN 13.6 g/dL (12.0-15.5); LYMPHOCYTES % (AUTO) 43.6 % (13-45); MEAN CORPUSCULAR HEMOGLOBIN 28.9 pg (27.0-33.4); MEAN CORPUSCULAR HGB CONC 32.8 g/dL (32.0-36.0); MEAN CORPUSCULAR VOLUME 88 fl (80-97); MONOCYTES % (AUTO) 7.5 % (3-13); PLATELET COUNT 265 10^3/uL (150-450); RED BLOOD COUNT 4.69 10^6/uL (3.72-5.28); RED CELL DISTRIBUTION WIDTH 13.1 % (11.5-14.0); SEGMENTED NEUTROPHILS % (AUTO) 45.8 % (42-78); TOTAL CELLS COUNTED % (AUTO) 100 %; WHITE BLOOD COUNT 5.9 10^3/uL (4.0-10.5)
--- NOTE | 2018-04-02 15:24 | ER Document Report ---
ED General - General Chief Complaint: Chest Pain Stated Complaint: STOMACH PAIN Time Seen by Provider: 04/02/18 14:23 Notes: Patient presents with 3-4 days of midsternal nonradiating sharp chest pain as well as diffuse intermittent abdominal pain that is crampy and sharp in nature. Patient denies any medical problems she has had intermittent nausea with no vomiting over the last several days. Last bowel movement was 2 days ago. She denies any vaginal discharge smells or concerns for infection. She denies any dysuria. She states that the pain in her chest is worse with movement better with rest. Denies any long trips no history or blood clots in her lungs or legs no recent cough congestion. She states that she has sour taste in her throat intermittent nausea associated with her abd pain. She does not take any medications on a daily basis. TRAVEL OUTSIDE OF THE [place] IN LAST 30 DAYS: No - Related Data Allergies/Adverse Reactions: ondansetron HCl [From Zofran] Allergy (Mild, Verified 11/05/17 05:52) lidocaine Allergy (Verified 04/02/18 14:02) Past Medical History - Social History Smoking Status: Unknown if Ever Smoked Chew tobacco use (# tins/day): No Frequency of alcohol use: None Drug Abuse: None Family History: Arthritis, CAD, CVA, DM, Hyperlipidemia, Hypertension, Malignancy, Thyroid Disfunction Patient has suicidal ideation: No Patient has homicidal ideation: No - Past Medical History Cardiac Medical History: Reports: Hx Hypercholesterolemia Neurological Medical History: Reports: Hx Migraine Renal/ Medical History: Denies: Hx Peritoneal Dialysis GI Medical History: Reports: Hx Gastroesophageal Reflux Disease Musculoskeletal Medical History: Reports Hx Musculoskeletal Trauma - left ankle fracture Skin Medical History: Reports Hx Eczema Psychiatric Medical History: Reports: Hx Bipolar Disorder Traumatic Medical History: Reports: Hx Fractures - left ankle Past Surgical History: Reports: Hx Oral Surgery - wisdom teeth - Immunizations Immunizations up to date: Yes Hx Diphtheria, Pertussis, Tetanus Vaccination: Yes - 2012 Review of Systems - Review of Systems Constitutional: No symptoms reported EENT: No symptoms reported Cardiovascular: See HPI Respiratory: No symptoms reported Gastrointestinal: See HPI Genitourinary: No symptoms reported Female Genitourinary: No symptoms reported Musculoskeletal: No symptoms reported Skin: No symptoms reported Hematologic/Lymphatic: No symptoms reported Neurological/Psychological: No symptoms reported Physical Exam - Vital signs Vitals: Temp Pulse Resp BP Pulse Ox 98.6 F 95 18 110/66 99 04/02/18 14:10 04/02/18 14:10 04/02/18 14:10 04/02/18 14:10 04/02/18 14:10 - General General appearance: Appears well, Alert - HEENT Head: Normocephalic, Atraumatic - Respiratory Respiratory status: No respiratory distress Chest status: Tender - Reproducible mid sternal chest pain with palpation with no rashes or erythema Breath sounds: Normal Chest palpation: Tender - Cardiovascular Rhythm: Regular Heart sounds: Normal auscultation Murmur: No - Abdominal Inspection: Normal Distension: No distension Bowel sounds: Normal Tenderness: Tender - Mild tenderness to palpation all quadrants - Back Back: Normal, Nontender. No: CVA tenderness - Extremities General upper extremity: Normal inspection General lower extremity: Normal inspection - Neurological Orientation: AAOx4 Course - Re-evaluation Re-evalutation: 04/02/18 17:36 Patient well-appearing labs within normal limits are nonsignificant no concerning findings on acute abdominal series. Patient's chest pain is reproducible with movement and palpation and her symptoms are consistent with costochondritis. Will provide anti-inflammatories for this. She also has nonspecific crampy abdominal pain and states she only has a bowel movement every 2-[address] patient on MiraLAX. We will also provide antinausea medications as needed, but I also told her to use Tums [id number] as needed when she has sour taste in her throat to see if this helps with her symptoms she has symptoms consistent with mild GERD Return precautions provided - Vital Signs Vital signs: Temp Pulse Resp BP Pulse Ox 98.6 F 95 18 110/66 99 04/02/18 14:10 04/02/18 14:10 04/02/18 14:10 04/02/18 14:10 04/02/18 14:10 - Laboratory Result Diagrams: 04/02/18 14:50 04/02/18 14:50 Laboratory results interpreted by me: 04/02/18 14:50 Total Bilirubin 0.1 L Total Protein 5.7 L Albumin 3.4 L Discharge - Discharge Clinical Impression: Costochondritis GERD (gastroesophageal reflux disease) Qualifiers: Esophagitis presence: esophagitis presence not specified Qualified Code(s): K21.9 - Gastro-esophageal reflux disease without esophagitis Constipation Qualifiers: Constipation type: unspecified constipation type Qualified Code(s): K59.00 - Constipation, unspecified Condition: Good Disposition: HOME, SELF-CARE Prescriptions: Metoclopramide HCl [Reglan] 10 mg PO TID PRN #15 tablet PRN Reason: Naproxen 500 mg PO BID PRN #20 tablet PRN Reason: Polyethylene Glycol 3350 [Miralax Powder 17 gm/Packet] 1 packet PO QAM #30 pkg Referrals: [facility] [Outside] - Follow up in 1 week (For re-evaluation if symptoms persist.)
[2018-04-02 15:37] LABS: ALANINE AMINOTRANSFERASE 23 U/L (9-52); ALBUMIN 3.4 g/dL (3.5-5.0); ALKALINE PHOSPHATASE 97 U/L (38-126); ANION GAP 10 (5-19); ASPARTATE AMINO TRANSFERASE 22 U/L (14-36); BILIRUBIN,DIRECT 0.1 mg/dL (0.0-0.4); BILIRUBIN,TOTAL 0.1 mg/dL (0.2-1.3); BLOOD UREA NITROGEN 7 mg/dL (7-20); CALCIUM 8.9 mg/dL (8.4-10.2); CARBON DIOXIDE 26 mmol/L (22-30); CHLORIDE 106 mmol/L (98-107); GLUCOSE 87 mg/dL (75-110); LIPASE 150.4 U/L (23-300); POTASSIUM 3.8 mmol/L (3.6-5.0); SODIUM 141.9 mmol/L (137-145); TOTAL PROTEIN 5.7 g/dL (6.3-8.2)
[2018-04-02 16:36] LABS: APPEARANCE,URINE CLEAR; BILIRUBIN,URINE NEGATIVE (NEGATIVE); COLOR,URINE YELLOW; GLUCOSE, URINE NEGATIVE (NEGATIVE); KETONES,URINE NEGATIVE (NEGATIVE); LEUKOCYTE ESTERASE,URINE NEGATIVE (NEGATIVE); NITRITE,URINE NEGATIVE (NEGATIVE); PROTEIN,URINE NEGATIVE (NEGATIVE); URINE SPECIFIC GRAVITY 1.018; UROBILINOGEN,URINE NEGATIVE mg/dL (<2.0)
--- NOTE | 2018-04-02 17:27 | RADIOLOGY REPORT (SQ) ---
EXAM DESCRIPTION: ACUTE ABDOMEN SERIES COMPLETED DATE/TIME: 04/02/2018 5:17 pm REASON FOR STUDY: Abdominal pain COMPARISON: None. NUMBER OF VIEWS: Three views. TECHNIQUE: Frontal chest, supine abdomen and upright/decubitus abdomen radiographic images acquired. LIMITATIONS: None. FINDINGS: CHEST: Lungs clear of infiltrates. FREE AIR: None. No abnormal gas collections. BOWEL GAS PATTERN: Nonobstructive pattern. No dilated loops or air fluid levels. CALCIFICATIONS: No suspicious calcifications. HARDWARE: None in the abdomen. SOFT TISSUES: No gross mass or suggestion of organomegaly. BONES: No acute fracture. No worrisome bone lesions. OTHER: No other significant finding. IMPRESSION: NO RADIOGRAPHIC EVIDENCE FOR ACUTE ABDOMINAL DISEASE. TECHNICAL DOCUMENTATION: JOB ID: [id number] [employer]- All Rights Reserved Reading location - IP/workstation name: [email or web address]
[2018-04-02 17:46] VITALS: BP 118/71
--- NOTE | 2018-04-02 18:40 | EKG REPORT ---
SEVERITY:- NORMAL ECG - SINUS RHYTHM : Confirmed by: Donny Delgado MD 02-Apr-2018 18:39:27
== END 2018-04-02 17:49 | disposition home or self-care (01) ==
LOC: ER 13:56
DX: M94.0 Chondrocostal junction syndrome [Tietze] (principal); K59.00 Constipation, unspecified; K21.9 Gastro-esophageal reflux disease without esophagitis; R07.9 Chest pain, unspecified; R10.84 Generalized abdominal pain; R11.0 Nausea; R43.8 Other disturbances of smell and taste; Z88.8 Allergy status to other drugs, medicaments and biological substances; Z88.4 Allergy status to anesthetic agent
CPT/HCPCS: 93005; 99285; 96372; 36415; 83690; 85025; 81025; 80053; 81001; 74022; 93010; J0500; J1885